=== PATIENT | male | born 1965 | race Hispanic/Latino ===

== ENCOUNTER 2016-08-27 11:41 | Inpatient (IN) | payer OTHER ==
[2016-08-27] VITALS (15 sets, daily range): BP systolic 122–154; BP diastolic 70–97; PULSE 71–85; RESP 12–20; O2SAT 94–99
[~2016-08-27] VITALS: Ht 160 cm; Wt 82.4 kg
--- NOTE | 2016-08-27 11:43 | ED.REPORT ---
HPI-Trauma Minor / Fall Date of Service Aug 27, 2016 ED Provider: Dr. 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 Pt was placed in a temporary splint by medics. His pain is exacerbated with position and movement. He states he broke the fall with the R leg, and denies any head trauma and LOC. 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 He also reports mild R shoulder pain , and medics report a R pinky laceration. Pt denies neck pain. Nursing Notes Stated Complaint: FALL Nursing Notes Reviewed: Yes Allergies: Coded Allergies: No Known Allergies (Unverified , 08/27/16) General Time Seen by MD: 11:43 Chief Complaint Fall, Extremity pain Hx Obtained From: Patient, EMS Arrived By: Ambulance Onset Occurred: Just prior to arrival Symptom Duration: Since onset Caused by: Fall from height... (6-10 feet) Location: Hand right Leg right Quality: Painful Severity: Current: Moderate Associated with: Denies: Loss of consciousness, Neck pain Exacerbated by: Movement, Position Past Medical History Past Medical History None reported Past Surgical History None reported Smoking History Light Tobacco Smoker Social History Alcohol Use: "Social" Drug Use: Denies drug use Review of Systems Basic Review of Systems Cardiovascular: No chest pain, No dyspnea on exertion, No orthopnea, No parox noct dyspnea, No palpitations GI: No abdominal pain, No anorexia, No nausea, No vomiting Allergy / Immune: No allergy Psychiatric: Normal thought content Constitutional: Denies: Fever Respiratory: Denies: Non-productive cough, Shortness of breath Musculoskeletal: Reports: Extremity pain, Denies: Neck pain Skin: Denies Diaphoresis, Denies Rash Neurologic: Denies: Change LOC, Headache Complete sys rev & neg: except as marked. Physical Exam Initial Vital Signs See trauma flow sheet Initial VS: Reviewed ENT: Conjunctiva normal, No scleral icterus Abdomen / GI: Soft, Non-tender Skin: Warm, Dry, No cyanosis Neurologic: Alert, Oriented, Nonfocal Psychiatric: Mood/affect normal, Behavior normal, Normal thought content General/Constitutional: Awake, Alert Neck: Supple, Full range of motion, No midline vertebral tend Clavicles stable bilat Head / Eyes: Atraumatic, Normocephalic, PERRL Respiratory / Chest: Breath sounds NL, Breath sounds = bilat, No respiratory distress, No rales, No rhonchi, No wheezing, No chest tenderness, No chest wall deformity, No crepitus Cardiovascular: Heart rate NL, Regular rhythm, Heart sounds NL, Cap refill not delayed, Peripheral circulation NL Back: Atraumatic, Inspection NL, No midline vertebral tend Upper Extremity / MS: Full range of motion, Neurologic intact, Vascular intact No upper arm tenderness. Laceration to ulnar surface of 5th finger on R side. R shoulder pain. Lower Extremity / Pelvis / MS: Neurologic intact, Vascular intact Mild deformity to the RLE. No abrasion or contusions. Interpretation & Diagnostics Lab Results Interpretation Result Diagram: 08/27/16 1208 08/27/16 1154 Test 08/27/16 11:54 08/27/16 12:08 White Blood Count 6.5th/mm3 (3.8-10.1) Red Blood Count 5.01mil/mm3 (4.40-5.80) Mean Corpuscular Volume 89.4fL (81-100) Mean Corpuscular Hemoglobin 31.5pg (27.0-35.0) Mean Corpuscular Hemoglobin Concent 35.3% (32.0-37.0) Red Cell Distribution Width 12.2% (12.3-15.4) Platelet Count 190bil/L (150-400) Neutrophils (%) (Auto) 55.4% (40-74) Lymphocytes (%) (Auto) 25.5% (14-46) Monocytes (%) (Auto) 16.3% (4-12) Eosinophils (%) (Auto) 1.8% (0-5) Basophils (%) (Auto) 0.5% (0-3) Sodium Level 141mEq/L (134-144) Potassium Level 3.5mEq/L (3.5-5.2) Chloride Level 99mEq/L (97-108) Carbon Dioxide Level 24mmol/L (18-29) Blood Urea Nitrogen 20mg/dL (6-24) Creatinine 0.80mg/dL (0.76-1.27) Estimat Glomerular Filtration Rate 108mL/min (>59) Glucose Level 226mg/dL (60-99) Calcium Level 9.0mg/dL (8.5-10.1) Total Bilirubin 0.4mg/dL (0.0-1.2) Aspartate Amino Transf (AST/SGOT) 38U/L (0-50) Alanine Aminotransferase (ALT/SGPT) 46U/L (0-44) Alkaline Phosphatase 106U/L (25-150) Total Protein 7.9g/dL (6.4-8.4) Albumin 4.6g/dL (3.4-5.0) Hemoglobin 15.2g/dL (13.8-17.2) Hematocrit 43.9% (41.0-50.0) X-Ray Chest Interpretation Chest Xray Interpretation: IMPRESSION: No acute abnormality Dictated by: Brad Madden M.D. on 08/27/2016 at 12:50 View: Portable, 1 view Interpretation / Wet Read by: Interpret - Radiologist X-Ray Interpretation Xray Interpretation: IMPRESSION: 1. Soft tissue injury fifth finger. No fracture seen considering flexion deformity. 2. Old healed fracture deformity tuft of the ring finger. Dictated by: Brad Madden M.D. on 08/27/2016 at 12:54 X-Ray Ordered: Hand right Interpretation / Wet Read by: Interpret - Radiologist Xray Interpretation: IMPRESSION: Negative for fracture Dictated by: Brad Madden M.D. on 08/27/2016 at 12:51 X-Ray Ordered: Humerus right Xray Interpretation: IMPRESSION: Negative for fracture Dictated by: Brad Madden M.D. on 08/27/2016 at 12:50 X-Ray Ordered: Pelvis Interpretation / Wet Read by: Interpret - Radiologist Xray Interpretation: IMPRESSION: Acute fractures proximal fibula and distal one third of the tibia. Dictated by: Brad Madden M.D. on 08/27/2016 at 12:55 X-Ray Ordered: Tibia fibula right Interpretation / Wet Read by: Interpret - Radiologist Re-Eval/Medical Decision Re-Evaluation/Progress #1: Time of Eval: 13:19 Re-Evaluation/Progress Note: last had juice 0900 this AM Re-Evaluation/Progress #2: Time of Eval: 13:34 Re-Evaluation/Progress Note: Pt updated of labs and imaging. Discussed plan for admission. All questions addressed. Re-Evaluation/Progress #3: Time of Eval: 14:01 Re-Evaluation/Progress Note: Dr. Meng in room assesing patient. Consultation #1: Referral / Consult Name: Amadeo Meng MD Consulted With: Orthopedic Call Returned at: 13:22 Stemhole Borer And Topper: Will see patient Note: Will take to OR, would like hospitalist admit and consult. Keep Pt NPO. Consultation #2: Referral / Consult Name: Sly Hopkins MD Consulted With: Surgeon Call Returned at: 13:50 Note: In light of isolated ortho surgery, does not need general surgery consult or admission. Consultation #3: Referral / Consult Name: Melchor Simmons MD Consulted With: Hospitalist Call Returned at: 13:56 Stemhole Borer And Topper: Will see patient, Agrees with eval, Agrees with plan, Accepts admit Counseled Regarding: Diagnosis, Lab results, Need for admission Discharge & Departure Impression: Primary Impression: Spiral fracture of shaft of tibia Encounter type: initial encounter Fracture type: closed Fracture alignment : displaced Laterality: right Qualified Code: S82.241A - Displaced spiral fracture of shaft of right tibia, initial encounter for closed fracture Additional Impressions: Spiral fracture of shaft of fibula Encounter type: initial encounter Fracture type: closed Fracture alignment : displaced Laterality: right Qualified Code: S82.441A - Displaced spiral fracture of shaft of right fibula, initial encounter for closed fracture Fall from roof Encounter type: initial encounter Qualified Code: W13.2XXA - Fall from, out of or through roof, initial encounter Right shoulder pain Chronicity: acute Qualified Code: M25.511 - Pain in right shoulder Laceration of right little finger Hyperglycemia Ruled Out: Finger fracture, Shoulder dislocation, Shoulder fracture Disposition: ADMITTED TO HOSPITAL Discharge Condition All VS Reviewed: Yes Referrals: Bjorn Ham MD (PCP) Amadeo Meng MD Scribe Attestation Portions of this note were transcribed by Kim Joyner. I, (Juanis Amado MD ) personally performed the history, physical exam and medical decision-making; I reviewed and confirmed the accuracy of the information in the transcribed note. Signed by: Kim Joyner. 08/27/2016, 1406 copies to: Bjorn Ham MD; Amadeo Meng MD, Shawna L MD Aug 27, 2016 11:43 Kim Joyner Aug 27, 2016 11:50
[2016-08-27] MEDS ORDERED: HYDROmorphone 0.5 mg/0.5 mL iSecure Syringe ONE (11:47)
[2016-08-27] MEDS ORDERED: Ondansetron 2 mg/mL 2 mL Inj IVPUSH PRN ×3 (11:50→18:55)
[2016-08-27] MEDS ORDERED: HYDROmorphone 0.5 mg/0.5 mL iSecure Syringe IVPUSH PRN (11:50)
[2016-08-27 11:58] LABS: BASOPHILS % (AUTO) 0.5 % (0-3); EOSINOPHILS % (AUTO) 1.8 % (0-5); MONOCYTES % (AUTO) 16.3 % (4-12); Mean Corpuscular Hemoglobin 31.5 pg (27.0-35.0); Mean Corpuscular Volume 89.4 fL (81-100); NEUTROPHILS % (AUTO) 55.4 % (40-74); Platelet Count 190 bil/L (150-400)
--- NOTE | 2016-08-27 12:52 | DRSVH ---
PROCEDURE: X-RAY PELVIS, ONE OR TWO VIEWS ([id number]) INDICATIONS: trauma TECHNIQUE: One view(s) of the pelvis acquired. COMPARISON: None. FINDINGS: Bones: No fractures or dislocations. No suspicious bony lesions. Soft tissues: Visualized bowel gas pattern is normal. No suspicious soft tissue calcifications. IMPRESSION: Negative for fracture Dictated by: Brad Madden M.D. on 08/27/2016 at 12:50 Approved by: Brad Madden M.D. on 08/27/2016 at 12:50
--- NOTE | 2016-08-27 12:52 | DRSVH ---
PROCEDURE: X-RAY CHEST ONE VIEW, PORTABLE ([id number]) INDICATIONS: trauma TECHNIQUE: One view of the chest was acquired. COMPARISON: None. FINDINGS: Surgical changes and devices: None. Lungs and pleura: No pleural effusions or pneumothorax. Lungs are clear. Mediastinum: Mediastinal contours appear normal. Heart size is normal. Bones and chest wall: No suspicious bony lesions. Thoracic spondylosis. Overlying soft tissues appea r unremarkable. IMPRESSION: No acute abnormality Dictated by: Brad Madden M.D. on 08/27/2016 at 12:50 Approved by: Brad Madden M.D. on 08/27/2016 at 12:50
--- NOTE | 2016-08-27 12:53 | DRSVH ---
PROCEDURE: X-RAY RIGHT HUMERUS, MINIMUM TWO VIEWS ([id number]) INDICATIONS: trauma TECHNIQUE: 3 views of the humerus were acquired. COMPARISON: None. FINDINGS: Bones: No fractures or dislocations. No suspicious bony lesions. Degenerative a.c. joint disease. Soft tissues: No suspicious soft tissue calcifications. IMPRESSION: Negative for fracture Dictated by: Brad Madden M.D. on 08/27/2016 at 12:51 Approved by: Brad Madden M.D. on 08/27/2016 at 12:51
--- NOTE | 2016-08-27 12:56 | DRSVH ---
PROCEDURE: X-RAY RIGHT HAND, MINIMUM THREE VIEWS ([id number]) INDICATIONS: trauma TECHNIQUE: 3 views of the hand(s) acquired. COMPARISON: None. FINDINGS: Bones: No acute fractures or dislocations. The fifth finger is held in flexion. Old fracture deformi ty tuft of the ring finger. Carpal bones are normally aligned. No suspicious bony lesions. Soft tissues: No suspicious soft tissue calcifications. There is soft tissue debris in the distal fi fth ray. IMPRESSION: 1. Soft tissue injury fifth finger. No fracture seen considering flexion deformity. 2. Old healed fracture deformity tuft of the ring finger. Dictated by: Brad Madden M.D. on 08/27/2016 at 12:54 Approved by: Brad Madden M.D. on 08/27/2016 at 12:54
--- NOTE | 2016-08-27 12:58 | DRSVH ---
PROCEDURE: X-RAY RIGHT TIBIA/FIBULA, TWO VIEWS ([id number]) INDICATIONS: trauma TECHNIQUE: 2 views of the tibia and fibula were acquired. COMPARISON: None. FINDINGS: Bones: Spiral fractures involve the proximal fibula and distal one third of the tibia with mild displ acement and angulation deformities. Proximal and distal joints appear intact. No suspicious bony lesi ons. Soft tissues: No suspicious soft tissue calcifications or masses. IMPRESSION: Acute fractures proximal fibula and distal one third of the tibia. Dictated by: Brad Madden M.D. on 08/27/2016 at 12:55 Approved by: Brad Madden M.D. on 08/27/2016 at 12:55
--- NOTE | 2016-08-27 13:44 | PCM.CONORT ---
Subjective Date of Surgery: Aug 27, 2016 Surgeon Admitting Provider: Attending Provider: Primary Care Physician:Azalia Other Provider: Reason for Consultation: Right leg pain Allergy Allergies: Coded Allergies: No Known Allergies (Unverified , 08/27/16) Medications No Active Prescriptions or Reported Meds History Other History/Comment Hunter Davies is a 50-year-old male patient who presents to ER after falling from a 9 foot tall building and hitting his leg against a concrete wall. The patient states that their pain is a sharp in nature and mild/moderate in severity localized to the tibial aspect of the right leg without radiation. This has been progressing over the past few hours after he fell off of a 9 foot high building earlier today. Moreover, the pain is exacerbated by activities, especially with all movement. Rest seems to improve the symptoms. There is no reports numbness, tingling, or weakness to the affected distal lower extremity. The patient denies any fever, chills, nausea, vomiting, chest pain, shortness of breath, or calf tenderness. Previous treatment has included: None. Work/ hobbies/sports include: Construction/remodeling Smoking Status: Light Tobacco Smoker Objective Exam Lab & Micro Results Laboratory Tests Test 08/27/16 11:54 08/27/16 12:08 White Blood Count 6.5th/mm3 (3.8-10.1) Red Blood Count 5.01mil/mm3 (4.40-5.80) Hemoglobin 15.8g/dL (13.8-17.2) 15.2g/dL (13.8-17.2) Hematocrit 44.8% (41.0-50.0) 43.9% (41.0-50.0) Mean Corpuscular Volume 89.4fL (81-100) Mean Corpuscular Hemoglobin 31.5pg (27.0-35.0) Mean Corpuscular Hemoglobin Concent 35.3% (32.0-37.0) Red Cell Distribution Width 12.2% (12.3-15.4) Platelet Count 190bil/L (150-400) Neutrophils (%) (Auto) 55.4% (40-74) Lymphocytes (%) (Auto) 25.5% (14-46) Monocytes (%) (Auto) 16.3% (4-12) Eosinophils (%) (Auto) 1.8% (0-5) Basophils (%) (Auto) 0.5% (0-3) Sodium Level 141mEq/L (134-144) Potassium Level 3.5mEq/L (3.5-5.2) Chloride Level 99mEq/L (97-108) Carbon Dioxide Level 24mmol/L (18-29) Blood Urea Nitrogen 20mg/dL (6-24) Creatinine 0.80mg/dL (0.76-1.27) Estimat Glomerular Filtration Rate 108mL/min (>59) Glucose Level 226mg/dL (60-99) Calcium Level 9.0mg/dL (8.5-10.1) Total Bilirubin 0.4mg/dL (0.0-1.2) Aspartate Amino Transf (AST/SGOT) 38U/L (0-50) Alanine Aminotransferase (ALT/SGPT) 46U/L (0-44) Alkaline Phosphatase 106U/L (25-150) Total Protein 7.9g/dL (6.4-8.4) Albumin 4.6g/dL (3.4-5.0) Result Diagram: 08/27/16 1208 08/27/16 1154 Review of Systems: Constitutional: Negative, except as otherwise mentioned in the history above. Ophthalmologic: Negative, except as otherwise mentioned in the history above. Cardiovascular: Negative, except as otherwise mentioned in the history above. Respiratory: Negative, except as otherwise mentioned in the history above. Gastrointestinal: Negative, except as otherwise mentioned in the history above. Genitourinary: Negative, except as otherwise mentioned in the history above. Musculoskeletal: Negative, except as otherwise mentioned in the history above. Neurological: Negative, except as otherwise mentioned in the history above. Psychiatric: Negative, except as otherwise mentioned in the history above. Hematologic/Lymphatic: Negative, except as otherwise mentioned in the history above. Allergic/Immunologic: Negative, except as otherwise mentioned in the history above. H&P Surgical Exam Exam Musculoskeletal: CONST: WD,WN, NAD, A+OX3 OCULAR: EOMI, no conjunctivitis/icterus ENT: no deformities, scars or lesions CARDIAC: Pulse is regular. No cyanosis,clubbing,edema RESP: regular,unlabored MSK: normal light touch SPN/DPN/TN distributions. 5/5 DF/PF/Inv/Ev, 2+ DP Right leg - scars, ++ swelling, compartment soft -erythema, - atrophy or asymmetry. TTP entire tibia alignment- neutral, gait: antalgic, edema-moderate ROM Strength/ Pain Able to wiggle toes Signs Kimberly's: - No hip pain ankle or foot pain. No back pain. Denies contralateral leg pain. Reports right shoulder pain Small volar through similar laceration to the right thumb without tendon or bone involvement. Tenderness to palpation right shoulder anteriorly. He has Deferred evaluation secondary to pain. 2+ pulses distally with intact motor distally Additional Information X-rays of the right tibia fibula demonstrates a displaced spiral mid third tibia shaft fracture as well as a displaced proximal fibular neck fracture. H&P Preop Plan Impression Right tibia fibula fracture, right shoulder contusion, rule out soft tissue injury Problems: Risks & Benefits * We have reviewed the risks and benefits as well as the alternatives to surgery. All questions were answered to the patient's satisfaction and a counseling note to that effect. The patient has provided informed consent. * I have counseled the patient regarding the deleterious effects that smoking during the perioperative period can have upon wound healing, infection rates, and the overall rate of complications. Plan Nonweightbearing right lower extremity Serial Compartment checks Nothing by mouth for intramedullary nailing of right tibia today pain meds as needed Continue medical management per primary Appreciate medical optimization prior to surgery Recommend irrigation and debridement of right hand laceration We will follow up in clinic with the right shoulder MRI if symptomatic Recommend right lower extremity splint prior to surgery Please keep the affected extremity elevated when possible. You may use ice as needed for comfort. All questions and concerns were addressed. Please feel free to call with any further questions, comments, and/or concerns. Amadeo Meng MD Aug 27, 2016 13:44
[2016-08-27] MEDS: HYDROmorphone 0.5 mg/0.5 mL iSecure Syringe IVPUSH PRN ×3 (13:45→21:36)
--- NOTE | 2016-08-27 13:59 | PCM.HPMED ---
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 Pt was placed in a temporary splint by medics. His pain is exacerbated with position and movement. He states he broke the fall with the R leg, and denies any head trauma and LOC. 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 He also reports mild R shoulder pain , and medics report a R pinky laceration. Pt denies neck pain. Review of Systems: Patient states he been feeling fine until just prior to the fall Gen.: No fevers chills weight loss weight gain Eyes: no visual disturbances or blurring vision HEENT: No nose/throat drainage, no pain in ears or throat, no hearing loss Lymph: No lymph nodes noted Cardiac: No chest pain, orthopnea, PND, palpitations , pedal edema or dyspnea on exertion Pulmonary: no cough, wheezing or bringing up of sputum GI: No anorexia nausea vomiting blood or black in the stool : no dysuria hematuria urinary frequency or decrease in urine output Musculoskeletal: Joint swelling no joint pain no new muscle aches or back pain Neuro: No syncope, seizures no loss of consciousness no new focal weakness, numbness or tingling Psychiatric: New new anxiety insomnia or depression Endocrine: No new heat or cold intolerances polyuria or polydipsia Hematology: No lymphadenopathy or easy bleeding or bruising noted skin: No new rashes, stasis dermatitis Allergies Coded Allergies: No Known Allergies (Unverified , 08/27/16) [facility] Patient denies any past medical history Family History HTN mother, denies diabetes Social History Hx Alcohol Use: Yes Hx Tobacco Use: Yes Smoking Status: Light Tobacco Smoker Exam Vital Signs 140/97 pulse 111, O2 95% room air temp 37.0 Exam Gen.- A+ O 3 no apparent distress. Heavy male Eyes- open conjunctiva clear, pupils equal nonicteric Mouth- oral mucosa moist, no exudate, dentition intact ENT- ears normal, nose normal Neck- supple/trach midline, no JVS CVS- RRR no murmur or gallop Lungs CTA, moving good air no evidenbce repsiratory distress GI- NABS/NT soft, generous panmnus Musc- moving 4, R leg swollen and in splint Neuro- cranial nerves II through XII intact to gross examination, nonfocal Skin- warm and dry, no rashes/lesions/wounds noted Psych- pleasant and appropriate, Lab and Diagnostics Result Diagram: 08/27/16 1208 08/27/16 1154 X-Rays, CTs and MRIs Chest x-ray concurrent reviewed no acute abnormality Right hand, pelvis, tib-fib, humerus, and pelvis all concurrently reviewed by myself and shows soft tissue injury fifth finger, and Acute fractures proximal fibula and distal one third of the tibia. 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 Patient has no preoperative surgical risk R tib fib fx-acute trauma and otherwise healthy male going to the OR for ORIF with Dr. Yang Right hand-soft tissue injury from trying to grab gutter as he fell I did not see anything but should be monitored Hyperglycemia probable diabetes-HG A1c ordered, low-dose sliding scale HTN? -Follow no treatment for now Prophylaxis-DVT will use heparin, SCDs contraindicated on right fractured leg , GI not indicated Disposition- patient's a full code going home and from home Melchor Simmons MD Aug 27, 2016 13:59
[2016-08-27] MEDS ORDERED: Polyethylene Glycol (PEG) 17 Gm Powder PO PRN (14:10)
[2016-08-27] MEDS ORDERED: Alum-Mag Hydrox-Simeth 30 mL Suspension PO PRN (14:10)
[2016-08-27] MEDS ORDERED: Glucose 40% Oral Gel 15 Gm Tube PO PRN (14:10)
[2016-08-27] MEDS ORDERED: MetoCLOpramide 5 mg/mL 2 mL Inj ONE (14:50)
[2016-08-27] MEDS ORDERED: fentaNYL-PF 50 mCg/mL 2 mL Inj ONE ×2 (14:50→21:33)
[2016-08-27] MEDS ORDERED: Propofol 10,000 mCg/mL 20 mL Inj ONE (14:50)
[2016-08-27] MEDS ORDERED: Labetalol 5 mg/mL 20 mL Inj ONE (14:50)
[2016-08-27] MEDS ORDERED: Ondansetron 2 mg/mL 2 mL Inj ONE (14:50)
[2016-08-27] MEDS: Sodium Chloride LOK Flush 10 mL Syringe IVFLUSH SCH (16:30)
--- NOTE | 2016-08-27 17:01 | NUR ---
Admission Patient arrived from ED with brother at bedside at 1615. Oriented patient to room and hospital policies. Two IV's noted in LUE. Aircast in place to RLE. Sensation and neuro's intact to RLE. Right pedal pulse present. Patient does state he understands [place] but will need research consultant for some situations. Encouraged patient to request research consultant at any time and patient agrees. Continue frequent monitoring.
--- NOTE | 2016-08-27 17:15 | NUR ---
Off unit to OR
[2016-08-27] MEDS ORDERED: Sodium Biphos-Phos 133 mL Enema RECTAL PRN (17:30)
[2016-08-27] MEDS ORDERED: diphenhydrAMINE 25 mg Capsule PO PRN (17:30)
[2016-08-27] MEDS: Insulin LISPRO 300 Unit/3 mL Inj SUBQ SCH ×2 (17:30→22:00)
[2016-08-27] MEDS ORDERED: MetoCLOpramide 5 mg/mL 2 mL Inj IVPUSH PRN ×2 (17:30→18:55)
[2016-08-27] MEDS ORDERED: Magnesium Hydroxide 10 mL Oral Concentration PO PRN (17:30)
--- NOTE | 2016-08-27 17:39 | PCM.ORTHOP ---
Orthopedic Operative Report Date of Service: Aug 27, 2016 Pre Operative Diagnosis Right tibia and fibula fracture Post Operative Diagnosis Same Procedure 1) right closed tibial shaft fracture closed intramedullary nailing 2) Closed reduction with manipulation of proximal fibula fracture Surgeon Surgeon: Amadeo Meng Assistants: Maxime Reddy Indication for Procedure Right tibia-fibula fracture Findings Displaced spiral tibial shaft fracture, displaced proximal fibular neck/shaft fracture Details of Procedure Procedure: 1) right closed tibial shaft fracture closed intramedullary nailing 2 ) Closed reduction with manipulation of proximal fibula fracture Faculty: Amadeo Meng Implant: Biomet Versa Tibial Nail 13 mm x 33 Procedure: Indications: Hunter Davies is a 50-year-old male status post fall from roof earlier today with the right closed tibia/fibula fracture. A clear explanation was given to the patient regarding the condition present, and the available conservative and surgical options. It was emphasized that the risks and benefits of surgery include but are not limited to infection, wound healing problems, damage to adjacent structures such as nerves, blood vessels and tendons, penitentiary disability and pain, arthritis, hypersensitivity, deep vein thrombosis, pulmonary embolism, broken hardware, failure of surgery, need for further procedures at time of surgery or later, cast related problems, loss of limb or life. The patient was given an explanation and the patient voiced understanding of what to expect after the procedure or surgery, the limitations in activities of daily living, the likely duration for post operative recovery and the instructions that are to be followed. At the end the patient was invited to seek clarification or ask further questions but there were none. The patient voiced understanding of the entire consultation. Description of Operation: The patient was brought to the operating room. Patient name and surgical site were confirmed. Preoperative antibiotics were given. The patient was placed supine on the table. General anesthesia was administered. The leg was prepped and draped in the usual sterile fashion. A 5 cm incision was made at the midline over the patellar tendon. Subcutaneous dissection was sharply performed down to the tendon. The patellar tendon was mobilized and retracted laterally. Care was taken to not damage intra- articular structures. A 3.2 mm guide pin was then inserted at the anterior tibial ridge in the center of the tibial plateau. Appropriate placement of the pin was checked in both AP and lateral views with the C-arm. The 12.5 mm entry reamer was then used to gain access to the intramedullary canal. The reamer and entry pin were removed. The fracture was reduced. The ball tipped guide wire was placed into the medullary canal and advanced into the center of the distal metaphysis. The guide wire was then over-reamed in 0.5 mm increments until bony chatter was achieved at the isthmus. A tire gauge was used to determine the length of the nail. The nail implant was loaded onto the insertion jig and then gently malleted into position over the guide wire. The fracture was well reduced as confirmed with C-arm in AP and lateral views. The guide was removed. The 5.0 mm proximal interlocking screw was then inserted in the standard fashion using the attached drill guide. The distal interlocking screws were then inserted in the standard fashion using the perfect lone pine technique under C-arm guidance. All wounds were thoroughly irrigated by bulb irrigation. Hemostasis was obtained with electrocautery. The subcutaneous space was closed with interrupted 2-0 Vicryl suture. The skin was closed with 2 -0 Proline. Hard copy radiographs confirmed adequate reduction and placement of hardware. The patient was extubated without difficulty and transferred to the PACU in stable condition. I was present for the entire procedure. Descriptions of Findings: long displaced spiral fracture of the tibia and proximal fibular neck/shaft fracture Specimens Removed: none CERTIFIED NOVELL ADMINISTRATOR SURGEON: During the operation, the services of physician rn surgical pcu were medically indicated and necessary to provide exposure of the operative site for the surgical procedure and to maintain the limb in a proper position to carry out the operation safely and efficiently. Without the qualified press assistant and feeder being present, it would have extended the operative procedure and made the procedure technically more difficult to perform. 38 X 4.5 and 42 X 4.5 distal screws 40 X 5.5 and 55 X 5.5 screws proximal screws Grafts, Implants: Implants-See Implant Record Complications There were no periprocedural complications identified. Condition Stable Anesthetic Administered: GA Catheters: None Output, Estimated Blood Loss: 100 Blood Admin during surgery: No Surgical Cast or Splint: Well-padded Short Leg Splint Surgical Specimen Removed: No Specimen sent to Pathology: No copies to: Amadeo Meng MD, Christopher L MD Aug 27, 2016 17:39
[2016-08-27] MEDS: Lactated Ringer's 1,000 ML IV SCH ×2 (18:00→22:40)
[2016-08-27] MEDS ORDERED: Lactated Ringer's 1,000 ML IV SCH (18:55)
[2016-08-27] MEDS ORDERED: Lactated Ringer's 500 ML IV PRN (18:55)
[2016-08-27] MEDS ORDERED: EPHEDrine Sulfate 50 mg/mL Inj IVPUSH PRN (18:55)
[2016-08-27] MEDS ORDERED: Phenylephrine 10,000 mCg/mL Inj IVPUSH PRN (18:55)
[2016-08-27] MEDS ORDERED: Dexamethasone 4 mg/mL Inj IVPUSH PRN (18:55)
[2016-08-27] MEDS ORDERED: HYDROmorphone 1 mg/mL Inj IVPUSH PRN (18:55)
--- NOTE | 2016-08-27 18:55 | PCM.HPANE ---
Patient Data Date of Service: Aug 27, 2016 (1700) Surgeon Admitting Provider:Melchor Simmons MD Attending Provider:Melchor Simmons MD Primary Care Physician:Azalia Other Provider: Reason for Visit Tib/ Fib Fx, Trauma Ht/WT & BMI Height (Feet): 5 Height (Inches): 3.00 Weight (Kilograms): 82.400 Body Mass Index 32.19 Allergies Coded Allergies: No Known Allergies (Unverified , 08/27/16) MRSA MRSA: No Medications No Active Prescriptions or Reported Meds History Hx of Heart Problems?: No Hx of Respiratory Problem?: No Hx Neurologic Problems?: No Hx of GI Problems?: No Hx of Problems?: No Male Hx: Denies:: Prostate Problems Scrotal Mass Testicular Surgery Hx Musculoskeletal Problems?: No Hx of Psycho/Social Problems?: No Hx Surgeries?: Yes (tonsillectomy) Hx Any Other Health Problems?: Yes History Blood Transfusions: Positive for:: Accept Blood Products? Denies:: Blood Transfusions Hx Alcohol Use: YesAlcoholic Drinks Per Day: socialHx Substance Use: No Smoking Status: Light Tobacco Smoker Have You Smoked inLast 12 mo: YesApprox How Many Cigarettes/day: 1 Stop/Bang Treated for Sleep Apnea?: No Do You Have a CPAP Machine?: No S-Snoring: Do You Snore Loudly: Yes T-Tired: feel tired, fatigued: No O-Obsered: Observed not breath: No P-Blood Pressure: treated: No B- Body Mass Index > 35 kg/m2: No A- Age over 50: Yes N- Neck Large Circumference: No G- Gender Male: Yes MEG Total Score: 2 Risk Assessment Category Category 1A: Patient has history of documented sleep apnea, and HAS NOT received any narcotic, sedative or anesthesia administration during this stay. Category 1B: Patient has history of documented sleep apnea, and HAS received any narcotic , sedative or anesthesia administration during this stay Category 2: Patient has SUSPECTED Obstructive Sleep Apnea, and HAS received any narcotic , sedative or anesthesia administration during this stay. Category 3: Patient has SUSPECTED Obstructive Sleep Apnea and HAS NOT received narcotic, sedative or anesthesia administration during this stay. Category 4: Outpatient in Procedural Areas with known sleep apnea or who screen positive for High Risk via the STOP/BANG questionnaire. Exam Exam Vital Signs Vital Signs Date Time Temp Pulse Resp B/P Pulse Ox O2 Delivery O2 Flow Rate FiO2 08/27/16 16:28 37.0 71 16 140/97 95 Room Air 08/27/16 16:05 84 12 144/82 97 Room Air General Appearance: Alert, Oriented X3, Cooperative, No Acute Distress HEENT/AIRWAY: MP 3 Lungs: Clear to Auscultation Heart: Exam Unremarkable Meds/Labs/Diagnostics Labs Test 08/27/16 11:54 08/27/16 12:08 White Blood Count 6.5th/mm3 (3.8-10.1) Red Blood Count 5.01mil/mm3 (4.40-5.80) Mean Corpuscular Volume 89.4fL (81-100) Mean Corpuscular Hemoglobin 31.5pg (27.0-35.0) Mean Corpuscular Hemoglobin Concent 35.3% (32.0-37.0) Red Cell Distribution Width 12.2% (12.3-15.4) Platelet Count 190bil/L (150-400) Neutrophils (%) (Auto) 55.4% (40-74) Lymphocytes (%) (Auto) 25.5% (14-46) Monocytes (%) (Auto) 16.3% (4-12) Eosinophils (%) (Auto) 1.8% (0-5) Basophils (%) (Auto) 0.5% (0-3) Sodium Level 141mEq/L (134-144) Potassium Level 3.5mEq/L (3.5-5.2) Chloride Level 99mEq/L (97-108) Carbon Dioxide Level 24mmol/L (18-29) Blood Urea Nitrogen 20mg/dL (6-24) Creatinine 0.80mg/dL (0.76-1.27) Estimat Glomerular Filtration Rate 108mL/min (>59) Glucose Level 226mg/dL (60-99) Calcium Level 9.0mg/dL (8.5-10.1) Total Bilirubin 0.4mg/dL (0.0-1.2) Aspartate Amino Transf (AST/SGOT) 38U/L (0-50) Alanine Aminotransferase (ALT/SGPT) 46U/L (0-44) Alkaline Phosphatase 106U/L (25-150) Total Protein 7.9g/dL (6.4-8.4) Albumin 4.6g/dL (3.4-5.0) Hemoglobin 15.2g/dL (13.8-17.2) Hematocrit 43.9% (41.0-50.0) Plan Impression Patient chart reviewed, patient interviewed and anesthestic plan with risks, benefits, and alternatives discussed, and informed consent obtained. ASA Physical Status: ASA2 Mod Systemic Disease Anesthetic Plan: GA Bene/Risks/Altern/Consents: Yes HP Complete Prior to Induction: Yes Jose Guadalupe Mckeon MD Aug 27, 2016 18:55
[2016-08-27] MEDS: Senna-Docusate 8.6-50 mg Tablet PO SCH (20:30)
[2016-08-27] MEDS ORDERED: Lactated Ringer's 1,000 ML IV ONE (21:27)
--- NOTE | 2016-08-27 21:33 | PCM.ANEP1 ---
Post Anesthesia Phase 1 PACU Phase 1 Assessment Date of Service: Aug 27, 2016 (1700) Vital Signs Vital Signs Date Time Temp Pulse Resp B/P Pulse Ox O2 Delivery O2 Flow Rate FiO2 08/27/16 21:30 85 14 148/95 99 Simple Mask 8 08/27/16 21:25 82 13 131/76 99 Simple Mask 8 08/27/16 21:20 79 19 125/87 97 Simple Mask 8 08/27/16 21:15 37.5 77 14 122/70 97 LMA WITH SIMPLE MASK 8 08/27/16 16:28 37.0 71 16 140/97 95 Room Air 08/27/16 16:05 84 12 144/82 97 Room Air Anesthetic Administered: GA Level of Alertness: Sleepy, easy to arouse ABERNATHY's with Equal Strength: Yes Pain: Yes Pain Scale Score: 5 Nausea or Vomiting: No Airway Device: LMA Oxygen Delivery: Simple Mask Lungs: Clear to Auscultation Dermatome Level: Full Sensation Jose Guadalupe Mckeon MD Aug 27, 2016 21:33
[2016-08-27] MEDS: fentaNYL-PF 50 mCg/mL 2 mL Inj IVPUSH PRN ×2 (21:34→22:09)
[2016-08-27] MEDS: Ketorolac 15 mg/mL Inj IVPUSH PRN (21:36)
--- NOTE | 2016-08-27 22:09 | DRSVH ---
PROCEDURE: X-RAY SURGICAL FLUORO C-ARM >1 HR INDICATIONS: RIGHT IM NAILING TIBULA COMPARISON: None. FINDINGS: C-arm films from the OR, 5 views are presented. These show the proximal end of the right t ibial intramedullary olga lidia and the distal end of the tibial intramedullary olga lidia. There are 2 screws lock ing the distally from medial to lateral and 2 screws proximally and anterior to the posterolateral. T he ends approximately 1-2 cm above the plafond. IMPRESSION: Intramedullary olga lidia in the right femur locked proximally and distally for fixation of a mi d to distal shaft tibial fracture. Dictated by: Garret Alexis M.D. on 08/27/2016 at 22:07 Approved by: Garret Alexis M.D. on 08/27/2016 at 22:07
--- NOTE | 2016-08-27 22:33 | NUR ---
Return to Floor Patient returned from PACU at 2225. Ox3, however, extremely somnolent. Sleeping and snoring loudly between questions. Dorsalis pedis pulse 2+ on the left; right pedal pulses obscured by bulky dressing. Wiggles right toes to command; skin tone appropriate, warm to touch. On 4L O2 per nasal cannula with SpO2 97%. Flow rate decreased to 2L with good tolerance by patient. Patient rates pain at 4/10, was just dosed with pain medications in PACU prior to transfer. Continue to monitor.
[2016-08-28 01:02] VITALS: BP 134/75; PULSE 82; RESP 18; O2SAT 98
[2016-08-28] MEDS: HYDROcodone-APAP 5-325 mg Tablet PO PRN ×3 (01:58→12:18)
[2016-08-28] MEDS: CeFAZolin Inj 2 GM in IV Premix 1 EACH IV SCH ×2 (01:58→08:01)
[2016-08-28] MEDS: Sodium Chloride LOK Flush 10 mL Syringe IVFLUSH SCH ×2 (01:59→08:01)
[2016-08-28 04:41] VITALS: BP 151/86; PULSE 77; RESP 18; O2SAT 99
[2016-08-28] MEDS: Ketorolac 15 mg/mL Inj IVPUSH PRN ×2 (04:47→13:41)
[2016-08-28 07:57] VITALS: BP 132/80; PULSE 64; RESP 16; O2SAT 97
[2016-08-28] MEDS: Insulin LISPRO 300 Unit/3 mL Inj SUBQ SCH ×2 (08:00→12:00)
[2016-08-28] MEDS: Senna-Docusate 8.6-50 mg Tablet PO SCH (08:01)
[2016-08-28 08:09] LABS: BASOPHILS % (AUTO) 0.3 % (0-3); EOSINOPHILS % (AUTO) 0.6 % (0-5); MONOCYTES % (AUTO) 17.8 % (4-12); Mean Corpuscular Hemoglobin 31.3 pg (27.0-35.0); Mean Corpuscular Volume 93.5 fL (81-100); Platelet Count 148 bil/L (150-400)
[2016-08-28] MEDS ORDERED: Influenza (Adult) Vaccine 0.5 mL Syringe IM ONE (08:30)
--- NOTE | 2016-08-28 10:17 | PCM.PNMED ---
Subjective Date of Service Aug 28, 2016 Subjective Right leg pain, but well controlled. No chest pain, cause, dyspnea or abdominal pain he has some right shoulder pain from his fall. No neck or back pain Exam Vital Signs Vital Sign - Last Date Time Temp Pulse Resp B/P Pulse Ox O2 Delivery O2 Flow Rate FiO2 08/28/16 07:57 37.0 64 16 132/80 97 Room Air 08/28/16 04:41 2.00 Intake and Output 08/27/16 08/27/16 08/28/16 Cumulative From/Thru 15:00 23:00 07:00 08/27/16 16:07 - 08/28/16 04:52 Intake Total 2100 ml 886 ml 2986 ml Output Total 100 ml 250 ml 350 ml Balance 2000 ml 636 ml 2636 ml Intake Oral 322 ml 322 ml IV Total 2100 ml 564 ml 2664 ml Output Urine Total 250 ml 250 ml Estimated Blood Loss 100 ml 100 ml # Bowel Movements 0 0 Exam Alert oriented 3, fluent speech no distress Neck supple Anicteric sclera Lungs clear normal effort. Heart is regular Abdomen soft Extremities there is a right leg splint. Good cap refill and feet. IVs and Medications Medications Reviewed: Medications were reviewed in detail Lab and Diagnostics Result Diagram: 08/28/16 0651 08/27/16 1154 X-Rays, CTs and MRIs Chest x-ray concurrent reviewed no acute abnormality Right hand, pelvis, tib-fib, humerus, and pelvis all concurrently reviewed by myself and shows soft tissue injury fifth finger, and Acute fractures proximal fibula and distal one third of the tibia. 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 Patient has no preoperative surgical risk 1. Right tib-fib fracture status post ORIF. Patient is on anticoagulation for DVT prophylaxis, physical therapy evaluation for discharge planning today. 2. Right shoulder hand injury, contusions from fall. POA. Plan is to follow and physical therapy evaluation 3. Hyperglycemia, POA. Corrected on second blood draw. Follow clinically. 4. Possible chronic hypertension, POA. Follow clinically. This patient contingent on physical therapy evaluation. Pain Evaluation: Adequate Pain Control VTE Mechanical Devices: Intermittant Pneumatic CD Resuscitation Status: CPR: Attempt Resuscitation Time spent 20 minutes Evelio Roque MD Aug 28, 2016 10:17
--- NOTE | 2016-08-28 12:09 | PCM.PNORTH ---
Subjective Date of Service: Aug 28, 2016 Visit Information: Reason for Visit Tib/ Fib Fx, Trauma Surgery/Surgery Date right tibia IM nailing and closed reduction right fibula 08/27/2016 Post-Op Day # 1 Date of Admission: Aug 27, 2016 at 15:08 Hospital Day # Subjective Patient has already been up with PT. He states he is comfortable with the crutches. The leg is throbbing a little right now. Pain is well controlled with Hubbell. He states he is ready to go home today. Postop General: No Shortness of Breath, No Chest Pain, Good Appetite Pain Management: PO, IV Push, Good Pain Control, No or Minimal Pain Objective Exam Objective Patient is seen sitting up in bed with right LE elevated on pillows. Vital Signs and I/O Vital Sign - Last Date Time Temp Pulse Resp B/P Pulse Ox O2 Delivery O2 Flow Rate FiO2 08/28/16 07:57 37.0 64 16 132/80 97 Room Air 08/28/16 04:41 2.00 Intake and Output 08/27/16 08/27/16 08/28/16 Cumulative From/Thru 15:00 23:00 07:00 08/27/16 16:07 - 08/28/16 04:52 Intake Total 2100 ml 886 ml 2986 ml Output Total 100 ml 250 ml 350 ml Balance 2000 ml 636 ml 2636 ml Intake Oral 322 ml 322 ml IV Total 2100 ml 564 ml 2664 ml Output Urine Total 250 ml 250 ml Estimated Blood Loss 100 ml 100 ml # Bowel Movements 0 0 Lab & Micro Results Laboratory Tests Test 08/27/16 12:08 08/28/16 06:51 Hemoglobin 15.2g/dL (13.8-17.2) 12.0g/dL (13.8-17.2) Hematocrit 43.9% (41.0-50.0) 35.9% (41.0-50.0) Hemoglobin A1c 6.1% (4.8-5.6) White Blood Count 7.0th/mm3 (3.8-10.1) Red Blood Count 3.84mil/mm3 (4.40-5.80) Mean Corpuscular Volume 93.5fL (81-100) Mean Corpuscular Hemoglobin 31.3pg (27.0-35.0) Mean Corpuscular Hemoglobin Concent 33.4% (32.0-37.0) Red Cell Distribution Width 11.9% (12.3-15.4) Platelet Count 148bil/L (150-400) Neutrophils (%) (Auto) 62.0% (40-74) Lymphocytes (%) (Auto) 19.0% (14-46) Monocytes (%) (Auto) 17.8% (4-12) Eosinophils (%) (Auto) 0.6% (0-5) Basophils (%) (Auto) 0.3% (0-3) Triglycerides Level 107mg/dL (0-149) Cholesterol Level 128mg/dL (100-199) LDL Cholesterol, Calculated 73.600mg/dL (0-99) VLDL Cholesterol 21.400mg/dL HDL Cholesterol 33mg/dL (>39) Cholesterol/HDL Ratio 3.88 (0.0-4.4) Result Diagram: 08/28/16 0651 08/27/16 1154 General Appearance: Alert, Oriented X3, Cooperative Extremities: Distal Pulses Palpable Postop Sensory Motor: Distal Motor Intact, Movement in Toes, Distal Sensation Intact SURGICAL WOUND : Wound Location/Description Left lower extremity is short leg post op dressing and splint, clean, dry and intact. Activity: Ambulate with PT Catheters: None Assessment & Plan Impression Status post right tibia IM nailing Status post right fibula close reduction Problems: Plan Weightbearing: Toe-touch weightbearing right LE with crutches or walker DVT prophylaxis: Xarelto 10 mg PO QDay x 14 days Physical therapy will see patient today for transfers, progressive ambulation, therapeutic exercise Ice and elevate right LE on pillows Wound care: leave dressing in place until first post op visit in 2 weeks. Keep clean and dry To shower - wrap small towel around top of splint, then cover leg with plastic bag up to the mid thigh and secure the top with tape Discharge plan: Discharge home today . Follow-up plan: In 2 weeks at [facility] with MALORIE for wound check and at [address] Meng with x-rays AP and lateral right tib/fib Pain Management: Toradol, Hubbell, morphine VTE Prophylaxis: Other (Xarelto 10 mg PO Q Day) Resuscitation Status: CPR: Attempt Resuscitation Gianna Mcadams PA-C Aug 28, 2016 12:09
--- NOTE | 2016-08-28 12:42 | PCM.DIOPOR ---
OP Ortho Discharge Instruction Dates of Hospitalization Date of Discharge: Aug 28, 2016 Providers Admitting Physician: Melchor Simmons MD Primary Care Physician: Nopsegundo Attending Physician: Melchor Simmons MD Diagnosis at Time of Discharge Post operative diagnosis s/p right tibia IM nail s/p right fibula closed reduction Activity Activity-General: Elevate & ice extremity, Other (minimal activity - bed or couch to bathroom only) Right Lower Extremity: Toe-Touch Weight Bearing Discharge Assist Device: Crutches Dressing and Incisional Care Dressing Care: Keep dressing clean, dry & intact Hygiene: May shower (see instructions below) Additional Instructions Discharge Instructions Weightbearing: Toe-touch weightbearing right leg with crutches or walker DVT prophylaxis: Xarelto 10 mg PO QDay x 14 days Ice and elevate right leg on pillows Pain Medicine: Dora 5/325 mg. Call our office for refills if needed. It will need to be picked up in person. Wound care: leave dressing in place until first post op visit in 2 weeks. Keep clean and dry To shower - wrap small towel around top of splint, then cover leg with plastic bag up to the mid thigh and secure the top with tape Follow-up plan: In 2 weeks at [facility] with MALORIE for wound check and at [address] Meng with x-rays AP and lateral right tib/fib Follow Up Plan Call your provider for: Other (Severe increase in pain, numbness in foot even with passive movement of toes, toes blue) Gianna Mcadams PA-C Aug 28, 2016 12:42
[2016-08-28 13:22] VITALS: BP 131/74; PULSE 69; RESP 16; O2SAT 93
--- NOTE | 2016-08-28 13:24 | PCM.DIMED ---
Discharge Instructions Date of Service Aug 28, 2016 Dates of Hospitalization Aug 27, 2016 at 15:08 Discharge Diagnosis Discharge Diagnosis 1. Right leg tibia-fibula fracture. Status post operative internal fixation and reduction. 2. Fall from height. 3. Right shoulder contusion. 4. Borderline hypertension. Diet No restrictions Activity Other (orthopedics toe-touch weightbearing on the right lower extremity, use crutches or walker at all times. Elevate leg as much as possible. Leave dressing on until orthopedic follow-up in 2 weeks.) Evelio Roque MD Aug 28, 2016 13:24
[2016-08-28] MEDS ORDERED: HYDR-4003 PO (13:25)
[2016-08-28] MEDS ORDERED: RIVA10TA PO (13:25)
--- NOTE | 2016-08-28 13:28 | PCM.DC.MED ---
Discharge Summary Date of Service Aug 28, 2016 Dates of Hospitalization Date of Hospital Admission Aug 27, 2016 at 15:08 Date of Discharge: Aug 28, 2016 Providers: Admitting Physician: Melchor Simmons MD Primary Care Physician: Nopsegundo Attending Physician: Melchor Simmons MD Diagnosis at Time of Discharge Diagnosis at Time of Discharge 1. Right leg tibia-fibula fracture. Status post operative internal fixation and reduction. 2. Fall from height. 3. Right shoulder contusion. 4. Borderline hypertension. Consultations Orthopedics Procedures XRay, CTs & MRIs Chest x-ray concurrent reviewed no acute abnormality Right hand, pelvis, tib-fib, humerus, and pelvis all concurrently reviewed by myself and shows soft tissue injury fifth finger, and Acute fractures proximal fibula and distal one third of the tibia. ECG 12 Lead Preoperative EKG was ordered but not performed Invasive Procedures ORIF of right tib-fib fracture per orthopedics please reference operative note Brief History 50 year old male who denies any past medical history who presents to the ED via EMS with an obvious deformity to the R tib/fib after falling approximately 9 feet from a roof while at work just [employer]. Pt was placed in a temporary splint by medics. His pain is exacerbated with position and movement. He states he broke the fall with the R leg, and denies any head trauma and LOC. 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 He also reports mild R shoulder pain , and medics report a R pinky laceration. Pt denies neck pain. Hospital Course 50 yo male works siding slipped off a roof, going to OR. Patient has no preoperative surgical risk 1. Right tib-fib fracture status post ORIF. Patient is on anticoagulation for DVT prophylaxis, physical therapy evaluation for discharge planning today. 2. Right shoulder hand injury, contusions from fall. POA. Plan is to follow and physical therapy evaluation 3. Hyperglycemia, POA. Corrected on second blood draw. Follow clinically. 4. Possible borderline hypertension, POA. Follow clinically. Ostial course. This patient was admitted with a right tib-fib fracture and underwent operative repair and internal fixation. He is placed on DVT prophylaxis and did well physical therapy evaluation on the day of discharge. He had mild hyperglycemia which corrected his second blood draw as well as a right shoulder contusion but no evidence of fracture. There is also a question of borderline hypertension. This will be followed clinically. On the day of discharge she was doing well and had no other further complaints. He was felt to be stable for discharge with close follow-up. Exam Vital Signs (Last) Date Time Temp Pulse Resp B/P Pulse Ox O2 Delivery O2 Flow Rate FiO2 08/28/16 13:22 36.8 69 16 131/74 93 Room Air 08/28/16 04:41 2.00 Exam Alert oriented 3, no distress. Fluent speech. Lungs are clear normal effort. Heart is regular with murmur gallop or rub. Abdomen is soft nondistended Extremities are free of edema. Good cap refill. Test 08/27/16 11:54 08/27/16 12:08 08/28/16 06:51 Sodium Level 141mEq/L (134-144) Potassium Level 3.5mEq/L (3.5-5.2) Chloride Level 99mEq/L (97-108) Carbon Dioxide Level 24mmol/L (18-29) Blood Urea Nitrogen 20mg/dL (6-24) Creatinine 0.80mg/dL (0.76-1.27) Estimat Glomerular Filtration Rate 108mL/min (>59) Glucose Level 226mg/dL (60-99) Calcium Level 9.0mg/dL (8.5-10.1) Total Bilirubin 0.4mg/dL (0.0-1.2) Aspartate Amino Transf (AST/SGOT) 38U/L (0-50) Alanine Aminotransferase (ALT/SGPT) 46U/L (0-44) Alkaline Phosphatase 106U/L (25-150) Total Protein 7.9g/dL (6.4-8.4) Albumin 4.6g/dL (3.4-5.0) Hemoglobin A1c 6.1% (4.8-5.6) White Blood Count 7.0th/mm3 (3.8-10.1) Red Blood Count 3.84mil/mm3 (4.40-5.80) Hemoglobin 12.0g/dL (13.8-17.2) Hematocrit 35.9% (41.0-50.0) Mean Corpuscular Volume 93.5fL (81-100) Mean Corpuscular Hemoglobin 31.3pg (27.0-35.0) Mean Corpuscular Hemoglobin Concent 33.4% (32.0-37.0) Red Cell Distribution Width 11.9% (12.3-15.4) Platelet Count 148bil/L (150-400) Neutrophils (%) (Auto) 62.0% (40-74) Lymphocytes (%) (Auto) 19.0% (14-46) Monocytes (%) (Auto) 17.8% (4-12) Eosinophils (%) (Auto) 0.6% (0-5) Basophils (%) (Auto) 0.3% (0-3) Triglycerides Level 107mg/dL (0-149) Cholesterol Level 128mg/dL (100-199) LDL Cholesterol, Calculated 73.600mg/dL (0-99) VLDL Cholesterol 21.400mg/dL HDL Cholesterol 33mg/dL (>39) Cholesterol/HDL Ratio 3.88 (0.0-4.4) Discharge Medications Discharge Medications Rivaroxaban (Xarelto) 10 Mg Tablet 10 MG PO DAILY@17 Prescribed by: MICHAELA LOW MD As needed Hydrocodone-Acetaminophen 5-325 mg (Hydrocodone-Acetaminophen 5-325 mg) 1 Each Tablet 1-2 TABLET PO Q4H PRN PRN For Moderate Pain Prescribed by: MICHAELA LOW MD Followup Plan Disposition: Home, with family Discharge Diet: No restrictions Discharge Activity: Other (orthopedics toe-touch weightbearing on the right lower extremity, use crutches or walker at all times. Elevate leg as much as possible. Leave dressing on until orthopedic follow-up in 2 weeks.) Patient Instructions Follow-up with orthopedics in 2 weeks information is given. Leave dressing on until that time. Toe-touch weightbearing and use of either walker or crutches at all times. Elevate legs as much as possible. He will be on a blood thinner , Zarrella toe once a day for 14 days to prevent leg blood clots Follow-up Provider: [facility] Time spent 40 minutes Michaela Low MD Aug 28, 2016 13:28
--- NOTE | 2016-08-28 13:49 | NUR ---
Social Work Screening D: EMR reviewed. Pt is a 50Y old male admitted for Tib/Fib Fx, Trauma. Insurance is [email or web address], [facility]. No PCP listed. Per EMR, Pt lives at home with family in [place] where he remains independent. Pt was at a work site and fell off roof injury himself. Pt is POD#1. Pt up with PT and able to discharge home. Pt is medically stable and discharging home today via POV with crutches. No discharge needs identified. A: Pt who is independent at baseline. P: Pt up with PT and able to discharge home. Pt is medically stable and discharging home today via POV with crutches. No discharge needs identified. CLIFF Wilson Addendum: 08/28/16 at 1354 by MIGUEL DIAZ Pt Discharged home via POV
--- NOTE | 2016-08-28 14:41 | NUR ---
Discharge note- Up with physical therapy and instructed on use of crutches. Tolerated ordered activity well. Vicodin 2 tabs effective for most of right leg pain. Dressing dry and intact with good sensation in extremity. Discharged to home with family and personal belongings.
--- NOTE | 2016-08-30 08:53 | PCM.ANEP2 ---
Post Anesthesia Evaluation ASA/CMS Post Anesthesia VS in Patient's Normal Range?: Yes Resp Stable; Airway Patent?: Yes CV Function & Hydration Stable: Yes Mental Status Recovered?: Yes Pain control Satisfactory?: Yes N/V Control Satisfactory?: Yes Jose Guadalupe Mckeon MD Aug 30, 2016 08:53
== END 2016-08-28 14:51 | disposition home or self-care (01) | DRG 313 ==
LOC: SED 11:41 → MOC 15:08 → OBSVTOIN 15:08
PROVIDERS: ADMIT Hospitalist; ATTEND Hospitalist
PROC: 0QS Lower Bones, Reposition (ICD-10-PCS; 2016-08-27)
PROC: 0QSJXZZ Reposition Right Fibula, External Approach (ICD-10-PCS; principal; 2016-08-27 18:00)
PROC: 3E0234Z Introduction of Serum, Toxoid and Vaccine into Muscle, Percutaneous Approach (ICD-10-PCS; 2016-08-28)
DX: S82.241A Displaced spiral fracture of shaft of right tibia, initial encounter for closed fracture (principal); S82.441A Displaced spiral fracture of shaft of right fibula, initial encounter for closed fracture; F17.200 Nicotine dependence, unspecified, uncomplicated; S61.218A Laceration without foreign body of other finger without damage to nail, initial encounter; W13.2XXA Fall from, out of or through roof, initial encounter; S40.011A Contusion of right shoulder, initial encounter; R73.9 Hyperglycemia, unspecified; Y99.0 Civilian activity done for income or pay; Y92.69 Other specified industrial and construction area as the place of occurrence of the external cause; Z23 Encounter for immunization

== ENCOUNTER 2016-09-20 15:43 | Emergency (ER) | payer OTHER ==
[~2016-09-20] VITALS: Ht 160 cm; Wt 81.8 kg
[~2016-09-20 15:43] MED LIST: HYDR-4003 PO; RIVA10TA PO
[2016-09-20 15:49] VITALS: BP 175/96; PULSE 76; RESP 20; O2SAT 98
--- NOTE | 2016-09-20 17:58 | ED.REPORT ---
HPI-Extremity Problem Upper Date of Service Sep 20, 2016 ED Provider: Tamia Cortez History of Present Illness: on going right shoulder pain since fall. wants MRI of right shoulder. oxycodone taking 8 pills a day, not much help, appointment 10/08 with ortho 03/[address] Meng is surgeon. has right leg fracture Nursing Notes Stated Complaint: ARM/LEG PAIN Chief Complaint: Extremity Trauma Allergies: Coded Allergies: No Known Allergies (Unverified , 08/27/16) Scheduled Rivaroxaban (Xarelto) 10 Mg Tablet 10 MG PO DAILY@17 Scheduled PRN Hydrocodone-Acetaminophen 5-325 mg (Hydrocodone-Acetaminophen 5-325 mg) 1 Each Tablet 1-2 TABLET PO Q4H PRN PRN For Moderate Pain General Time Seen by MD: 17:44 Chief Complaint Shoulder injury right Hx Obtained From: Patient Onset Occurred: More than a week ago... (3 weeks) Symptom Duration: Since onset Past Medical History Past Medical History None reported Past Surgical History None reported Smoking History Light Tobacco Smoker Social History Alcohol Use: "Social" Drug Use: Denies drug use Other Social History: Occupation no work at this time because of L and I injury 09/20/2016 Ambulatory Status Independent Review of Systems Basic Review of Systems Eyes: Vision NL, No discharge ENT: Hearing NL, No pain, No nasal congestion, No pharyngeal pain Respiratory: No shortness of breath, No cough, No wheeze Cardiovascular: No chest pain, No dyspnea on exertion, No orthopnea, No parox noct dyspnea, No palpitations GI: No abdominal pain, No anorexia, No nausea, No vomiting : No dysuria, No frequency Hematologic: No bleeding, No bruising Endocrine: No cold intolerance, No heat intolerance, No weight gain, No weight loss Allergy / Immune: No allergy Psychiatric: Normal thought content Physical Exam Initial Vital Signs Vital Signs (First) Date Time Temp Pulse Resp B/P Pulse Ox O2 Delivery O2 Flow Rate FiO2 09/20/16 15:49 36.8 76 20 175/96 98 Room Air Initial VS: Reviewed, Vital signs normal General/Constitutional: Well-developed, Well-nourished Head / Eyes: Atraumatic, Normocephalic, PERRL ENT: Mucous membranes moist, Conjunctiva normal, No scleral icterus Neck: Supple, Non-tender, Full range of motion Respiratory: Breath sounds normal, Clear to auscultation, No respiratory distress Cardiovascular: Regular rate & rhythm, Heart sounds normal, Intact distal pulses Abdomen / GI: Soft, Non-tender, No guarding, No rebound, No distention Back: No CVA tenderness Lymphatic: No lymphadenopathy Lower Extremities: Vascular intact, Neuro intact, No swelling, No tenderness Skin: Warm, Dry, No cyanosis Neurologic: Alert, Oriented, Nonfocal Psychiatric: Mood/affect normal, Behavior normal, Normal thought content General/Constitutional: Awake, Alert, No acute distress, Well appearing, Well developed, Well hydrated, Well nourished, Cooperative, Not toxic appearing Respiratory / Chest: Atraumatic, Breath sounds NL, Breath sounds = bilat, No respiratory distress Cardiovascular: Heart rate NL, Regular rhythm, Heart sounds NL tenderness to anterior right shoulder. No sign of ecchymosis or contusion. Pain with movement Interpretation & Diagnostics Interpretation & Diagnostics: INDICATIONS: fall from roof, continued pain TECHNIQUE: Noncontrast 1-1.5 mm thick sections acquired from the acromioclavicular joint to the inferior scapula, with coronal and sagittal reformatting. COMPARISON: [facility], CR, XR SHOULDER MIN 2VW RT, 09/10/2016, 13:38. FINDINGS: Image quality: Excellent. Bones and joint: No fractures or dislocation. The anterior-inferior glenoid appears irregular suspicious for a Bankart lesion. There is no Hill-Sachs deformity of the humeral head. Calcific densities in the inferior glenohumeral joint may represent intra-articular bodies. There is moderate acromioclavicular and mild clinical humeral joint degeneration. Soft tissues: Calcific densities are seen over the humeral head, consistent with calcific tendinitis. IMPRESSION: 1. Irregularity in the anterosuperior joint suspicious for Bankart lesion. MR arthrogram may be helpful for further evaluation of labral injury. 2. Calcific tendinitis. 3. ? Intraocular bodies. 4. Degenerative joint disease. Re-Eval/Medical Decision Med Decision/Clinical Course discussed with DR. Stephen. Will place in a sling, provide rx for wheelchair and more pain medication # 20 oxycodone 10 mg, max 4 a day Discharge & Departure Impression: Primary Impression: Right shoulder pain Disposition: Home Patient Instructions: Shoulder Sprain (ED) Additional Instructions: The CT shows a possible Bankert lesion on the right shoulder. Dr. Meng treats these also. Please call his office tomorrow and make an appointment to be seen for this. Wear the sling for comfort. You can take the arm out of the sling 3 times an hour and do circles and wall walking to prevent frozen shoulder and elbow. You are being provided a prescription for a wheel chair to give your shoulder a rest. You are also being provided a prescription for oxycodone. Please discuss pain management with your surgeon. Referrals: Amadeo Meng MD EDSupervising Provider for APC: Igor Singh DO copies to: Amadeo Meng MD, Sue ARNP Sep 20, 2016 17:58
[2016-09-20] MEDS ORDERED: Ketorolac 30 mg/mL 2 mL Inj IM ONE (18:00)
--- NOTE | 2016-09-20 18:32 | DRSVH ---
PROCEDURE: CT SHOULDER RIGHT W/O CONTRAST (36543) INDICATIONS: fall from roof, continued pain TECHNIQUE: Noncontrast 1-1.5 mm thick sections acquired from the acromioclavicular joint to the inferior scapula , with coronal and sagittal reformatting. COMPARISON: [facility], CR, XR SHOULDER MIN 2VW RT, 09/10/2016, 13:38. FINDINGS: Image quality: Excellent. Bones and joint: No fractures or dislocation. The anterior-inferior glenoid appears irregular suspici ous for a Bankart lesion. There is no Hill-Sachs deformity of the humeral head. Calcific densities in the inferior glenohumeral joint may represent intra-articular bodies. There is moderate acromioclavi cular and mild clinical humeral joint degeneration. Soft tissues: Calcific densities are seen over the humeral head, consistent with calcific tendinitis. IMPRESSION: 1. Irregularity in the anterosuperior joint suspicious for Bankart lesion. MR arthrogram may be helpf ul for further evaluation of labral injury. 2. Calcific tendinitis. 3. ? Intraocular bodies. 4. Degenerative joint disease. Dictated by: Michele Wiggins M.D. on 09/20/2016 at 18:22 Approved by: Michele Wiggins M.D. on 09/20/2016 at 18:30
[2016-09-20 19:49] VITALS: BP 139/68; PULSE 78; RESP 18; O2SAT 99
== END 2016-09-20 19:50 | disposition home or self-care (01) ==
LOC: SED 15:43
DX: M25.511 Pain in right shoulder (principal); W13.2XXA Fall from, out of or through roof, initial encounter; Y93.89 Activity, other specified; Y92.69 Other specified industrial and construction area as the place of occurrence of the external cause; Y99.0 Civilian activity done for income or pay; F17.200 Nicotine dependence, unspecified, uncomplicated
CPT/HCPCS: 73200; 96372; 99284; J1885